=== PATIENT | male | born 1995 | race Caucasian/White ===

== ENCOUNTER 2019-01-25 01:32 | Emergency (ER) | payer SELFPAY ==
--- NOTE | 2019-01-25 02:48 | RADIOLOGY REPORT (SQ) ---
EXAM DESCRIPTION: XR HAND 3 OR MORE VIEWS COMPLETED DATE/TME: 01/25/2019 02:05 CLINICAL HISTORY: 23 years Male, hand trauma COMPARISON: None. Findings: Known soft tissue injury; no radioopaque foreign body. Bones, joints, and soft tissues of the LEFT XR HAND 3 OR MORE VIEWS appear otherwise intact. IMPRESSION: Soft tissue injury; else, no acute findings.
--- NOTE | 2019-01-25 03:23 | ER Document Report ---
ED General - General Chief Complaint: Hand Pain Stated Complaint: HAND INJURY Time Seen by Provider: 01/25/19 02:04 Notes: Patient is a 23-year-old male without chronic medical problems who presents after he punched multiple hard surfaces with his left hand after becoming angry. He now notes a moderate to severe throbbing, aching, constant pain over the left mid dorsal hand. Movement of the hand worsens the pain. Has not tried nothing for improvement in the pain. No history of similar injuries in the past. He is left-hand dominant. Denies injury to any other location. - Related Data Allergies/Adverse Reactions: No Known Allergies Allergy (Verified 01/25/19 01:37) Past Medical History - General Information source: Patient - Social History Smoking Status: Current Every Day Smoker Frequency of alcohol use: Occasional Drug Abuse: None Family History: Reviewed & Not Pertinent Patient has suicidal ideation: No Patient has homicidal ideation: No Renal/ Medical History: Denies: Hx Peritoneal Dialysis Review of Systems - Review of Systems Notes: Constitutional: Negative for fever. Eyes: Negative for visual changes. ENT: Negative for facial injury Cardiovascular: Negative for chest injury. Respiratory: Negative for shortness of breath. Gastrointestinal: Negative for abdominal injury. Genitourinary: Negative for genital injury Musculoskeletal: Positive for left hand injury Skin: Positive for hematoma to the left dorsal hand Neurological: Negative for head injury. Physical Exam - Vital signs Interpretation: Normal Notes: PHYSICAL EXAMINATION: GENERAL: Well-appearing, well-nourished and in no acute distress. HEAD: Atraumatic, normocephalic. EYES: sclera anicteric, conjunctiva are normal. ENT: Moist mucous membranes. NECK: Normal range of motion LUNGS: Normal work of breathing HEART: 2+ radial pulses bilaterally EXTREMITIES: RMU motor and sensory distribution is intact laterally including against resistance on motor testing. Full flexion extension of the DIP, PIP and MCP of all digits of the left hand including against resistance. There is a notable swelling to the dorsum of the left hand just below the level of the MCP of the third digit NEUROLOGICAL: No focal neurological deficits. Moves all extremities spontaneously and on command. PSYCH: Normal mood, normal affect. SKIN: Warm, Dry, normal turgor, there is a traumatic ecchymosis just below the level of the MCP of the third digit of the left hand Course - Re-evaluation Re-evalutation: 01/25/19 03:18 Patient presents after punching multiple surfaces with his left dominant hand. He does have some swelling below the MCP of the third digit left hand. RMU motor and sensory dissipation intact. Capillary refill intact, less than 1 second in all digits of the hand. No injury to any location. X-ray without any evidence of fracture. No indication for further imaging or work-up at this time. I have counseled patient on anger management. At this time will discharge with return precautions and follow-up recommendations. Verbal discharge instructions given a the bedside and opportunity for questions given. Medication warnings reviewed. Patient is in agreement with this plan and has verbalized understanding of return precautions and the need for primary care follow-up in the next 24-72 hours. - Diagnostic Test Radiology reviewed: Image reviewed, Reports reviewed Radiology results interpreted by me: 01/25/19 03:19 Left hand x-ray: No acute fracture or dislocation Discharge - Discharge Clinical Impression: Injury of left hand Qualifiers: Encounter type: initial encounter Qualified Code(s): S69.92XA - Unspecified injury of left wrist, hand and finger(s), initial encounter Condition: Good Disposition: HOME, SELF-CARE Additional Instructions: Your x-ray does not show any acute fracture today. You have a soft tissue contusion with associated bruising. You should continue to take anti- inflammatories such as ibuprofen 600 mg every 6 hours. Continue to apply ice to the area is much your able. Please follow-up with your primary care physician if you do not have improving your symptoms in the next 1-2 weeks. Please return immediately if you develop weakness, numbness, spreading redness from the area, or any other symptoms that are concerning to you.
== END 2019-01-25 03:32 | disposition home or self-care (01) ==
LOC: ER 01:32
DX: S60.222A Contusion of left hand, initial encounter (principal); M79.642 Pain in left hand; W22.8XXA Striking against or struck by other objects, initial encounter; Y93.89 Activity, other specified; F17.200 Nicotine dependence, unspecified, uncomplicated
CPT/HCPCS: 99283